=== PATIENT | female | born 1990 | race Caucasian/White ===

== ENCOUNTER → 2016-06-27 | Outpatient (CLI) | payer OTHER ==
[~2016-06-27] MED LIST: ANAPROX DS550 MG PO; ATOXIMETIN-B1 CAP PO; BACTROBAN2% TP; BLEPH-10 15 ML15 ML OP; CIPROFLOXACIN500 MG PO; CLEOCIN HCL150 MG PO; CLINDAMYCIN HC300 MG PO; HYDROCODONE BIT1 T11 PO; IRON325 M2 PO; MONISTAT DERM2% TP; MOTRIN800 MG PO; NORCO 5-325 TA1 EACH PO; PRENATAL1 TA1 PO; PRENATAL1 TA3 PO; PRENATAL1 TA4 PO; TRAMADOL HCL50 MG PO; VICODIN 5/500 505 MG PO; VOLTAREN50 MG PO; ZITHROMAX Z PA250 MG PO; ZOVIRAX200 MG PO
== END | disposition home or self-care (01) ==
LOC: US 06-06 09:30
DX: N63 Unspecified lump in breast (principal)

== ENCOUNTER 2016-09-14 09:31 | Emergency (ER) | payer OTHER ==
[~2016-09-14] VITALS: Ht 165.1 cm; Wt 49.9 kg
[2016-09-14 09:47] LABS: BASO # 0.1 10*3/uL (0.0-0.1); BASO % 0.4 % (0.0-1.0); EOS # 0.3 10*3/uL (0.0-0.4); EOS % 1.8 % (1.0-4.0); IG # 0.1 10*3/uL (0.0-0.1); LYMPH # 2.9 10*3/uL (1.3-4.4); LYMPH % 17.6 % (27.0-41.0); MEAN CELL VOLUME 86.5 fl (81.0-99.0); MEAN CORPUSCULAR HGB 28.8 pg (27.0-31.0); MEAN CORPUSCULAR HGB CONC 33.3 g/dl (33.0-37.0); MEAN PLATELET VOLUME 9.8 fl (9.6-12.3); MONO # 0.9 10*3/uL (0.1-1.0); MONO % 5.5 % (3.0-9.0); NEUT # 12.3 10*3/uL (2.3-7.9); NEUT % 74.3 % (47.0-73.0); PLATELET COUNT AUTOMATED 238 10*3/uL (130-400); RED BLOOD COUNT 4.51 10*6/uL (4.10-5.10); RED CELL DISTRI WIDTH 13.7 % (0-14.5); WHITE BLOOD COUNT 16.6 10*3/uL (4.8-10.8)
[2016-09-14 09:56] LABS: PROTHROMBIN TIME 10.6 SECONDS (9.0-12.4)
[2016-09-14 10:03] LABS: ALBUMIN 3.8 gm/dl (3.1-4.5); ALKALINE PHOSPHATASE 102 U/L (45-117); BILIRUBIN, TOTAL 0.3 mg/dl (0.2-1.0); BUN 13 mg/dl (7-24); CARBON DIOXIDE 25 mmol/L (21-32); CHLORIDE 105 mmol/L (98-107); EST GLOM FILT AFRICAN AMERICAN > 60 ml/min; GLUCOSE 72 mg/dL (65-99); MAGNESIUM 1.7 mg/dL (1.5-2.1); POTASSIUM 3.9 mmol/L (3.5-5.1); SGOT/AST 18 IU/L (3-35); SGPT/ALT 17 U/L (12-78); SODIUM 139 mmol/L (136-145); TOTAL PROTEIN 7.1 gm/dL (6.4-8.2)
[2016-09-14 10:04] LABS: TROPONIN I < 0.015 ng/ml (<0.045)
[2016-09-14] MEDS ORDERED: NAPROSYN500 MG PO (11:36)
== END 2016-09-14 11:49 | disposition home or self-care (01) ==
LOC: ED 09:31
PROVIDERS: Emergency Medicine
DX: R07.89 Other chest pain (principal); R20.2 Paresthesia of skin; F17.200 Nicotine dependence, unspecified, uncomplicated; Z79.899 Other long term (current) drug therapy; Z88.1 Allergy status to other antibiotic agents; Z91.040 Latex allergy status

== ENCOUNTER → 2016-09-15 | Outpatient (CLI) | payer OTHER ==
[~2016-09-15] MED LIST changes: +NAPROSYN500 MG PO
--- NOTE | ~2016-09-15 | PF ---
[place], [place] PULMONARY FUNCTION TEST NAME: [facility]O [facility]OWIE [facility] [id number] UNIT #: [id number] ROOM: DOCTOR: NICCI ULLOA MD,OFELIA BIRTHDATE: [birth year] DOS: 09/15/2016 ORDERED BY: Dr. Damaris Chairez. HISTORY: The patient recorded as 25-year-old female, height of 65 inches, weight of 110 pounds, BMI of 18.3. The patient reported symptoms of shortness of breath with exertion, productive cough and rare wheezing. The patient was noted with history of COPD. The patient noted history of tobacco use as 1.5 pack of cigarettes per day for the past 12 years. SPIROMETRY: The FVC was recorded at 4.06 liter 104% predicted value as normal; however, partial improvement 13% occurred after the bronchodilator administration. The FEV1 was noted as 2.81 liters that is 84% predicted value as normal without significant post-bronchodilator change. The ratio of FEV1/FVC was recorded as 59% post-bronchodilator. Flow volume loop was suggestive of mild obstructive airway pattern. Lung Volume: Thoracic gas volume recorded 107%, residual volume 76%, total lung capacity 105%. The patient's lung diffusion recorded as 89%. The patient's airway resistance and specific conductance both noted normal with partial improvement occurred postbronchodilator test. FINAL IMPRESSION: The test is currently noted suggestive of mild reversible obstructive lung disease as bronchial asthma. Clinical correlation would be advised. OFELIA GRAJEDA MD CM:PFREPORT:PULMONARY FUNCTION TEST [id number] OFELIA ULLOA MD
== END | disposition home or self-care (01) ==
LOC: CP 07:47
DX: J44.9 Chronic obstructive pulmonary disease, unspecified (principal); R06.2 Wheezing

== ENCOUNTER → 2016-10-26 | Day surgery (SDC) | payer OTHER ==
[~2016-10-26] VITALS: Ht 165.1 cm; Wt 52.2 kg
[~2016-10-26] MED LIST changes: +BENTYL10 MG PO
--- NOTE | ~2016-10-26 | O ---
[place], [place] OPERATIVE NOTE NAME: LAURO BOWIE UNIT #: [id number] ROOM: DOCTOR: AINSLEY HILL MD BIRTHDATE: [birth year] DOS: 10/26/2016 GASTROENDOSCOPIC REPORT. SUBJECTIVE: The patient is a 25-year-old with left lower quadrant pain, change in bowel habits, blood in stool, mucus in the stool. ALLERGIES: LATEX and AMOXICILLIN. FAMILY HISTORY: Noncontributory. PAST SURGICAL HISTORY: Berry teeth. PAST MEDICAL HISTORY: Anemia, 7 days bleeder per month. SOCIAL HISTORY: Smoker, nonalcohol consumer. PROCEDURE: Today's procedure part of investigation is colonoscopy. PREMEDICATION: Versed and Diprivan. SCOPE: Olympus folding colonoscope 10L video. REPORT: After putting the patient in the left lateral position and after application of lubricant to the scope, the scope was introduced; thereafter, under direct visualization, advanced through the length of colon without difficulty. Base of the cecum explored, appendiceal orifice identified, and ileocecal valve was defined. Scope was gradually withdrawn from ascending, transverse, descending colon. No acute pathology was identified. The patient angulation of sigmoid colon noticed. The patient extubated, tolerated procedure well. Impression is angulation and tortuosity of sigmoid colon, otherwise normal colonoscopic examination. This is consistent with irritable bowel syndrome history; therefore, I am going to start her on dicyclomine 10 mg 1 daily and will reassess clinical response. IMPRESSION: Irritable bowel syndrome, left lower quadrant pain associated with sigmoid colon angulation. PLAN AND DISCUSSION: Sonographic study of the abdomen and pelvis is recommended if it is already not done. Therefore, I am going to organize that. Thank you very much indeed for your kind referral. [place], [place] OPERATIVE NOTE NAME: LAURO BOWIE UNIT #: [id number] ROOM: DOCTOR: AINSLEY HILL MD BIRTHDATE: [birth year] AINSLEY HILL MD CM:OPRECORD:OPERATIVE NOTE [id number] AINSLEY HILL MD 10/26/16 1255 interface
[2016-10-26 08:50] VITALS: BP 104/65
[2016-10-26 09:20] VITALS: BP 97/43
[2016-10-26 09:35] VITALS: BP 96/55
[2016-10-26 09:50] VITALS: BP 96/58
== END | disposition home or self-care (01) ==
LOC: SDC 10-19 10:15
DX: K58.9 Irritable bowel syndrome, unspecified (principal); K56.60 Unspecified intestinal obstruction; Z88.1 Allergy status to other antibiotic agents; Z98.890 Other specified postprocedural states; D64.9 Anemia, unspecified; F32.9 Major depressive disorder, single episode, unspecified; F41.9 Anxiety disorder, unspecified; Z87.891 Personal history of nicotine dependence

== ENCOUNTER → 2016-11-07 | Outpatient (CLI) | payer OTHER | END | disposition home or self-care (01) | LOC: US 10:00 | DX: R10.32 Left lower quadrant pain (principal) ==

== ENCOUNTER 2018-03-03 16:32 | Emergency (ER) | payer OTHER ==
[~2018-03-03] VITALS: Ht 165.1 cm; Wt 59.0 kg
[2018-03-03 16:53] LABS: BILIRUBIN NEGATIVE (NEGATIVE); BLOOD NEGATIVE (NEGATIVE); CLARITY CLEAR (CLEAR); COLOR YELLOW (YELLOW); GLUCOSE NEGATIVE (NEGATIVE); KETONE NEGATIVE (NEGATIVE); LEUKO ESTERASE NEGATIVE (NEGATIVE); NITRITE NEGATIVE (NEGATIVE); UROBILINOGEN 0.2 E.U./dl (0.2-1.0)
[2018-03-03 17:05] LABS: BACTERIA TRACE; RBC 0-2 rbc/hpf (0-2)
== END 2018-03-03 17:20 | disposition home or self-care (01) ==
LOC: ED 16:32
PROVIDERS: Nurse Practitioner Family
DX: O26.891 Other specified pregnancy related conditions, first trimester (principal); R30.0 Dysuria; M54.5 Low back pain; R03.0 Elevated blood-pressure reading, without diagnosis of hypertension; N89.8 Other specified noninflammatory disorders of vagina; Z88.1 Allergy status to other antibiotic agents; Z91.040 Latex allergy status; Z79.899 Other long term (current) drug therapy; Z3A.12 12 weeks gestation of pregnancy

== ENCOUNTER → 2018-03-28 | Outpatient (CLI) | payer OTHER | END | disposition home or self-care (01) | LOC: US 12:31 | DX: Z34.92 Encounter for supervision of normal pregnancy, unspecified, second trimester (principal); Z3A.18 18 weeks gestation of pregnancy ==

== ENCOUNTER → 2018-06-04 | Outpatient (CLI) | payer OTHER ==
[~2018-06-04] MED LIST changes: +ATARAX,VISTARIL50 MG PO; +LOTRISONE CREAM15 GM T; +PRENATAL VITAM1 EAC3 PO
[2018-06-04 14:20] LABS: BASO % 0.3 % (0.0-1.0); EOS # 0.3 10*3/uL (0.0-0.4); EOS % 2.3 % (1.0-4.0); HEMATOCRIT 36.9 % (37.0-47.0); LYMPH # 2.7 10*3/uL (1.3-4.4); LYMPH % 23.8 % (27.0-41.0); MEAN CELL VOLUME 91.3 fl (81.0-99.0); MEAN CORPUSCULAR HGB 29.7 pg (27.0-31.0); MEAN CORPUSCULAR HGB CONC 32.5 g/dl (33.0-37.0); MEAN PLATELET VOLUME 10.5 fl (9.6-12.3); MONO # 0.6 10*3/uL (0.1-1.0); MONO % 5.4 % (3.0-9.0); NEUT # 7.8 10*3/uL (2.3-7.9); NEUT % 67.9 % (47.0-73.0); PLATELET COUNT AUTOMATED 208 10*3/uL (130-400); RED BLOOD COUNT 4.04 10*6/uL (4.10-5.10); RED CELL DISTRI WIDTH 13.1 % (0-14.5); WHITE BLOOD COUNT 11.4 10*3/uL (4.8-10.8)
== END | disposition home or self-care (01) ==
LOC: LAB 14:02
PROVIDERS: Family Medicine
DX: D72.829 Elevated white blood cell count, unspecified (principal)

== ENCOUNTER 2018-09-29 02:08 | Emergency (ER) | payer OTHER ==
[~2018-09-29] VITALS: Wt 61.2 kg
--- NOTE | ~2018-09-29 | EKG ---
[place], [place] ELECTROCARDIOGRAM REPORT NAME: LAURO BOWIE UNIT #: [id number] ROOM: DOCTOR: EPIPHSHELBY DRAFT REPORT BIRTHDATE: [birth year] [facility] Test Date: 2018-09-29 Test Time: 03:33:56 Pat Name: LAURO BOWIE Department: Room: Gender: F Rn Progressive Care Unit: [facility] : 1990 Requested By: JUAN ALBERTO COLEMAN Order Number: [id number] Reading MD: Measurements Intervals [place] Rate: 74 P: 41 [place]: 157 QRS: 88 QRSD: 92 T: 52 QT: 394 QTc: 438 Interpretive Statements Sinus rhythm No previous ECG available for comparison CM:EKGRPT:ELECTROCARDIOGRAM REPORT [id number] [facility] JUAN ALBERTO COLEMAN MD
[~2018-09-29 02:08] MED LIST changes: -ATARAX,VISTARIL50 MG PO; -LOTRISONE CREAM15 GM T; -PRENATAL VITAM1 EAC3 PO
[2018-09-29] MEDS ORDERED: PRENATAL VITAM1 EAC3 PO (02:14)
[2018-09-29 03:28] LABS: BASO # 0.1 10*3/uL (0.0-0.1); BASO % 0.6 % (0.0-1.0); EOS # 0.8 10*3/uL (0.0-0.4); EOS % 7.2 % (1.0-4.0); HEMATOCRIT 37.6 % (37.0-47.0); HEMOGLOBIN 11.9 g/dl (12.0-16.0); LYMPH # 3.9 10*3/uL (1.3-4.4); LYMPH % 37.4 % (27.0-41.0); MEAN CELL VOLUME 87.4 fl (81.0-99.0); MEAN CORPUSCULAR HGB 27.7 pg (27.0-31.0); MEAN CORPUSCULAR HGB CONC 31.6 g/dl (33.0-37.0); MEAN PLATELET VOLUME 10.1 fl (9.6-12.3); MONO # 0.7 10*3/uL (0.1-1.0); MONO % 6.8 % (3.0-9.0); NEUT % 47.8 % (47.0-73.0); PLATELET COUNT AUTOMATED 257 10*3/uL (130-400); RED CELL DISTRI WIDTH 16.5 % (0-14.5); WHITE BLOOD COUNT 10.4 10*3/uL (4.8-10.8)
[2018-09-29 03:45] LABS: ALBUMIN 3.5 gm/dl (3.1-4.5); ALKALINE PHOSPHATASE 96 U/L (45-117); BUN 14 mg/dl (7-24); CHLORIDE 113 mmol/L (98-107); CREATININE 0.84 mg/dL (0.55-1.02); LIPASE 99 U/L (73-393); SGOT/AST 8 IU/L (3-35); SGPT/ALT 19 U/L (12-78); SODIUM 142 mmol/L (136-145); TOTAL PROTEIN 6.8 gm/dL (6.4-8.2)
[2018-09-29 03:46] LABS: TROPONIN I < 0.015 ng/ml (<0.045)
[2018-09-29 03:51] LABS: THYROID STIM HORMONE (HS) 0.485 uIU/ml (0.358-4.75)
[2018-09-29 04:24] LABS: BILIRUBIN NEGATIVE (NEGATIVE); BLOOD NEGATIVE (NEGATIVE); CLARITY CLEAR (CLEAR); COLOR YELLOW (YELLOW); GLUCOSE NEGATIVE (NEGATIVE); KETONE NEGATIVE (NEGATIVE); LEUKO ESTERASE NEGATIVE (NEGATIVE); NITRITE NEGATIVE (NEGATIVE); UROBILINOGEN 0.2 E.U./dl (0.2-1.0)
[2018-09-29 04:33] LABS: URINE AMPHETAMINES < 1000 (1000ng/ml); URINE BARBITURATES < 200 (200ng/ml); URINE BENZODIAZEPINES < 200 (200ng/ml); URINE CANNABINOIDS (THC) > 50 (50ng/ml); URINE COCAINE < 300 (300ng/ml); URINE METHADONE < 300 (300ng/ml); URINE OPIATES < 300 (300ng/ml)
[2018-09-29 04:34] LABS: BACTERIA TRACE; MUCOUS 2+; URINE PHENCYCLIDINE < 25 (25ng/ml); WBC 0-2 wbc/hpf (0-5)
[2018-09-29] MEDS ORDERED: ATARAX,VISTARIL50 MG PO (05:05)
[2018-09-29] MEDS ORDERED: LOTRISONE CREAM15 GM T (05:05)
== END 2018-09-29 05:20 | disposition home or self-care (01) ==
LOC: ED 02:08
PROVIDERS: Emergency Medicine Emergency Medical Services
DX: B35.3 Tinea pedis (principal); F41.1 Generalized anxiety disorder; F43.0 Acute stress reaction; Z88.1 Allergy status to other antibiotic agents; Z91.040 Latex allergy status; Z79.899 Other long term (current) drug therapy

== ENCOUNTER → 2018-10-27 | Outpatient (CLI) | payer OTHER ==
[~2018-10-27] MED LIST changes: +ATARAX,VISTARIL50 MG PO; +LOTRISONE CREAM15 GM T; +PRENATAL VITAM1 EAC3 PO
== END | disposition home or self-care (01) ==
LOC: LAB 16:56
PROVIDERS: Family Medicine
DX: E55.9 Vitamin D deficiency, unspecified (principal); R53.83 Other fatigue; M25.50 Pain in unspecified joint